=== PATIENT | male | born 1955 | race African-American/Black ===

== ENCOUNTER 2017-07-25 23:19 | Emergency (ER) | payer OTHER ==
[~2017-07-25] VITALS: Ht 182.9 cm; Wt 72.0 kg
[2017-07-26] MEDS ORDERED: CLONIDINE 0.3MG TABLET PO ONE (00:15)
[2017-07-26] MEDS ORDERED: CLONIDINE HCL 0.1MG/24HR PATCH TD ONE (00:15)
[2017-07-26 03:10] VITALS: BP 104/62
== END 2017-07-26 03:56 | disposition home or self-care (01) ==
LOC: ER 23:30
DX: E11.649 Type 2 diabetes mellitus with hypoglycemia without coma (principal); I10 Essential (primary) hypertension; Z79.4 Long term (current) use of insulin
CPT/HCPCS: 82962; 93005; 99283